=== PATIENT | male | born 1960 | race African-American/Black ===

== ENCOUNTER 2022-09-09 13:22 | Emergency (ER) | payer MEDICAID, OTHER ==
[~2022-09-09] VITALS: Ht 177.8 cm; Wt 113.4 kg
[~2022-09-09 13:22] MED LIST: ACET-10509 PO
[2022-09-09 13:34] VITALS: BP 153/80
[2022-09-09] MEDS ORDERED: KETOROLAC 15 MG/ML VIAL IM ONE (14:40)
[2022-09-09] MEDS ORDERED: IBUP-2213 PO (14:49)
== END 2022-09-09 15:29 | disposition home or self-care (01) ==
LOC: MED 13:22
DX: S00.83XA Contusion of other part of head, initial encounter (principal); I10 Essential (primary) hypertension; Z79.899 Other long term (current) drug therapy; Z79.1 Long term (current) use of non-steroidal anti-inflammatories (NSAID); Y04.0XXA Assault by unarmed brawl or fight, initial encounter; Y92.89 Other specified places as the place of occurrence of the external cause; Y93.89 Activity, other specified; Y99.8 Other external cause status
CPT/HCPCS: 99283; J1885